=== PATIENT | male | born 1945 | race Caucasian/White ===

== ENCOUNTER → 2017-02-01 | Outpatient (CLI) | payer OTHER, BC ==
[~2017-02-01] MED LIST: ACETAMINOPHN-T1 EACH PO; ATORVASTATIN CA40 MG PO; BACLOFEN10 MG PO; CENTRUM SILVER1 EAC3 PO; CLOPIDOGREL75 MG PO; ECOTRIN325 MG PO; HYDROCODON-ACE1 EAC7 PO; HYDROXYZINE HCL25 MG PO; LANSOPRAZOLE30 MG PO; LORATADINE10 M2 PO; METOPROLOL TART50 MG PO; OCUVITE TABLET1 EACH PO; ROCEPHIN1000 MG IM; TRANDOLAPRIL1 MG PO; VITAMIN D31000 UNIT PO; ZETIA10 MG PO
== END | disposition home or self-care (01) ==
LOC: AMB 12:31
DX: M54.16 Radiculopathy, lumbar region (principal); R20.0 Anesthesia of skin; M79.662 Pain in left lower leg; M47.896 Other spondylosis, lumbar region
CPT/HCPCS: 62304; 72132

== ENCOUNTER 2017-07-26 11:05 | Inpatient (IN) | payer OTHER, BC ==
[~2017-07-26] VITALS: Ht 167.6 cm; Wt 61.8 kg
[2017-07-26 11:44] LABS: HEMATOCRIT 33.7 % (38.0-50.0); MCHC 34.7 G/DL (30.0-36.0); MCV 92.1 FL (86-99); MEAN PLAT.VOLUME 10.4 uM^3 (9.0-12.4); PLATELET COUNT 249 K/uL (156-360); RBC DIS.WIDTH-CV 14.7 % (11.8-14.6); RBC DIS.WIDTH-SD 49.9 % (39-53); RED BLOOD COUNT 3.66 M/uL (4.00-5.50); WHITE BLOOD COUNT 14.3 K/uL (4.1-10.2)
[2017-07-26 11:53] LABS: CHLORIDE 99 mEq/L (99-109); POTASSIUM 3.5 mEq/L (3.7-5.4); SODIUM 135 mEq/L (136-147)
[2017-07-26 11:56] LABS: GLUCOSE 127 mg/dL (70-99)
[2017-07-26 11:57] LABS: ANION GAP 11 MEQ/L (2-14)
[2017-07-26 11:59] LABS: ALKALINE PHOSPHATASE 2183 IU/L (3-129); GFR ESTIMATE (CALCULATED) > 59 mL/min/ (58.99-99999)
[2017-07-26 12:00] LABS: UREA NITROGEN (BUN) 23 mg/dL (9-23)
[2017-07-26 12:03] LABS: LIPASE 24 U/L (1.0-51.0)
[2017-07-26] MEDS ORDERED: BACLOFEN10 MG PO (14:28)
[2017-07-26] MEDS ORDERED: TOPROL XL50 MG PO (14:30)
[2017-07-26] MEDS ORDERED: LITE COAT ASPI325 M1 PO (14:31)
[2017-07-26] MEDS ORDERED: NORCO 5/3251 TABLET PO (14:32)
[2017-07-26] MEDS ORDERED: EPIPEN ADU0.3 MG/0.3 IM (14:34)
[2017-07-26] MEDS ORDERED: LANSOPRAZOLE30 MG PO (14:34)
[2017-07-26] MEDS ORDERED: CENTRUM SILVER1 EAC5 PO (14:35)
[2017-07-26 16:53] LABS: INTER. NORMALIZED RATIO 1.4; PROTHROMBIN TIME 15.6 SEC (10.2-12.9)
[2017-07-26 16:56] LABS: PTT 34.7 SEC (25-37)
[2017-07-26 18:37] VITALS: BP 146/65
[2017-07-26 18:54] VITALS: BP 121/56
[2017-07-26 22:48] VITALS: BP 92/56
[2017-07-27] VITALS (7 sets, daily range): BP systolic 97–120; BP diastolic 51–64
[2017-07-27 06:02] LABS: MCH 31.6 PG (29.0-34.0); MCHC 33.5 G/DL (30.0-36.0); MCV 94.2 FL (86-99); MEAN PLAT.VOLUME 10.7 uM^3 (9.0-12.4); PLATELET COUNT 198 K/uL (156-360); RBC DIS.WIDTH-CV 15.4 % (11.8-14.6); RBC DIS.WIDTH-SD 53.1 % (39-53); RED BLOOD COUNT 3.29 M/uL (4.00-5.50)
[2017-07-27 06:29] LABS: ANION GAP 7 MEQ/L (2-14); CHLORIDE 107 MEQ/L (99-109); GFR ESTIMATE (CALCULATED) > 59 mL/min/ (58.99-99999); GLUCOSE 81 mg/dL (70-99); POTASSIUM 3.7 MEQ/L (3.7-5.4); SAMPLE HEMOLYSIS CHECK 0; SAMPLE ICTERIC CHECK 2; SAMPLE LIPEMIA CHECK 0; SODIUM 141 MEQ/L (136-147); TOTAL BILIRUBIN 11.1 MG/DL (0.0-1.0); UREA NITROGEN (BUN) 23 mg/dL (9-23)
[2017-07-27 08:48] LABS: ALKALINE PHOSPHATASE 1650 IU/L (3-129)
[2017-07-28 03:53] VITALS: BP 123/56
[2017-07-28 05:59] LABS: BASOPHIL COUNT 0.1 K/uL (0-0.1); EOSINOPHIL (%) 1.7 % (0-5); EOSINOPHIL COUNT 0.2 K/uL (0-0.3); HEMATOCRIT 29.1 % (38.0-50.0); IMMATURE GRANULOCYTE (%) 0.9 % (0.0-0.7); IMMATURE GRANULOCYTE COUNT 0.1 K/uL; INSTRUMENT ABS NEUTROPHIL CT 11.6 K/uL; LYMPHOCYTE COUNT 0.7 K/uL (1.0-2.8); MCV 93.9 FL (86-99); MEAN PLAT.VOLUME 10.5 uM^3 (9.0-12.4); MONOCYTE (%) 6.4 % (3-12); MONOCYTE COUNT 0.9 K/uL (0-0.8); NEUTROPHIL (%) 85.7 % (45-76); NEUTROPHIL COUNT 11.6 K/uL (1.8-6.4); PLATELET COUNT 204 K/uL (156-360); RBC DIS.WIDTH-CV 15.5 % (11.8-14.6); WHITE BLOOD COUNT 13.6 K/uL (4.1-10.2)
[2017-07-28 06:24] LABS: ALKALINE PHOSPHATASE 1496 IU/L (3-129); ANION GAP 11 MEQ/L (2-14); CHLORIDE 111 MEQ/L (99-109); GFR ESTIMATE (CALCULATED) > 59 mL/min/ (58.99-99999); GLUCOSE 100 mg/dL (70-99); POTASSIUM 3.4 MEQ/L (3.7-5.4); SAMPLE HEMOLYSIS CHECK 0; SAMPLE ICTERIC CHECK 3; SAMPLE LIPEMIA CHECK 0; SODIUM 144 MEQ/L (136-147); TOTAL BILIRUBIN 13.1 MG/DL (0.0-1.0); UREA NITROGEN (BUN) 23 mg/dL (9-23)
[2017-07-28 07:30] VITALS: BP 128/63
[2017-07-28 11:16] VITALS: BP 107/58
[2017-07-28 16:32] VITALS: BP 122/60
[2017-07-28 19:43] VITALS: BP 129/61
[2017-07-28 22:54] VITALS: BP 114/55
[2017-07-29 04:00] VITALS: BP 120/68
[2017-07-29 06:14] LABS: EOSINOPHIL (%) 2.8 % (0-5); EOSINOPHIL COUNT 0.3 K/uL (0-0.3); HEMATOCRIT 27.1 % (38.0-50.0); IMMATURE GRANULOCYTE (%) 0.9 % (0.0-0.7); IMMATURE GRANULOCYTE COUNT 0.1 K/uL; INSTRUMENT ABS NEUTROPHIL CT 8.2 K/uL; LYMPHOCYTE COUNT 0.7 K/uL (1.0-2.8); MCH 31.8 PG (29.0-34.0); MCHC 34.3 G/DL (30.0-36.0); MCV 92.8 FL (86-99); MEAN PLAT.VOLUME 10.6 uM^3 (9.0-12.4); MONOCYTE (%) 7.4 % (3-12); MONOCYTE COUNT 0.7 K/uL (0-0.8); NEUTROPHIL (%) 81.6 % (45-76); NEUTROPHIL COUNT 8.2 K/uL (1.8-6.4); PLATELET COUNT 202 K/uL (156-360); RBC DIS.WIDTH-CV 15.8 % (11.8-14.6); RBC DIS.WIDTH-SD 53.1 % (39-53); RED BLOOD COUNT 2.92 M/uL (4.00-5.50)
[2017-07-29 06:44] LABS: ALKALINE PHOSPHATASE 1371 IU/L (3-129); ANION GAP 9 MEQ/L (2-14); CHLORIDE 114 MEQ/L (99-109); GFR ESTIMATE (CALCULATED) > 59 mL/min/ (58.99-99999); GLUCOSE 106 mg/dL (70-99); POTASSIUM 3.6 MEQ/L (3.7-5.4); SAMPLE HEMOLYSIS CHECK 0; SAMPLE ICTERIC CHECK 3; SAMPLE LIPEMIA CHECK 0; SODIUM 145 MEQ/L (136-147); TOTAL BILIRUBIN 12.6 MG/DL (0.0-1.0); UREA NITROGEN (BUN) 18 mg/dL (9-23)
[2017-07-29 06:50] VITALS: BP 127/66
[2017-07-29 15:15] VITALS: BP 133/71
[2017-07-30 00:01] VITALS: BP 140/67
[2017-07-30 06:06] LABS: BASOPHIL COUNT 0.1 K/uL (0-0.1); EOSINOPHIL (%) 3.1 % (0-5); EOSINOPHIL COUNT 0.3 K/uL (0-0.3); HEMATOCRIT 28.2 % (38.0-50.0); IMMATURE GRANULOCYTE (%) 1.2 % (0.0-0.7); IMMATURE GRANULOCYTE COUNT 0.1 K/uL; INSTRUMENT ABS NEUTROPHIL CT 7.5 K/uL; LYMPHOCYTE COUNT 0.8 K/uL (1.0-2.8); MCH 32.1 PG (29.0-34.0); MCHC 34.8 G/DL (30.0-36.0); MCV 92.5 FL (86-99); MEAN PLAT.VOLUME 10.8 uM^3 (9.0-12.4); MONOCYTE (%) 7.2 % (3-12); MONOCYTE COUNT 0.7 K/uL (0-0.8); NEUTROPHIL (%) 79.5 % (45-76); NEUTROPHIL COUNT 7.5 K/uL (1.8-6.4); PLATELET COUNT 205 K/uL (156-360); RBC DIS.WIDTH-CV 16.2 % (11.8-14.6); RBC DIS.WIDTH-SD 54.3 % (39-53); RED BLOOD COUNT 3.05 M/uL (4.00-5.50); WHITE BLOOD COUNT 9.4 K/uL (4.1-10.2)
[2017-07-30 06:45] LABS: ALKALINE PHOSPHATASE 1485 IU/L (3-129); ANION GAP 11 MEQ/L (2-14); CHLORIDE 111 MEQ/L (99-109); GFR ESTIMATE (CALCULATED) > 59 mL/min/ (58.99-99999); GLUCOSE 97 mg/dL (70-99); POTASSIUM 3.5 MEQ/L (3.7-5.4); SAMPLE HEMOLYSIS CHECK 0; SAMPLE ICTERIC CHECK 3; SAMPLE LIPEMIA CHECK 0; SODIUM 146 MEQ/L (136-147); UREA NITROGEN (BUN) 16 mg/dL (9-23)
[2017-07-30 06:58] LABS: TOTAL BILIRUBIN 15.5 MG/DL (0.0-1.0)
[2017-07-30 08:56] VITALS: BP 154/70
[2017-07-30 15:00] VITALS: BP 122/59
[2017-07-31 01:10] VITALS: BP 120/64
[2017-07-31 06:50] LABS: ALKALINE PHOSPHATASE 1242 IU/L (3-129); ANION GAP 7 MEQ/L (2-14); CHLORIDE 112 MEQ/L (99-109); GFR ESTIMATE (CALCULATED) > 59 mL/min/ (58.99-99999); GLUCOSE 100 mg/dL (70-99); POTASSIUM 3.4 MEQ/L (3.7-5.4); SAMPLE HEMOLYSIS CHECK 0; SAMPLE ICTERIC CHECK 3; SAMPLE LIPEMIA CHECK 0; SODIUM 145 MEQ/L (136-147); UREA NITROGEN (BUN) 17 mg/dL (9-23)
[2017-07-31 07:03] VITALS: BP 139/65
[2017-07-31 15:44] VITALS: BP 123/58
[2017-08-01 00:05] VITALS: BP 135/71
[2017-08-01 05:55] LABS: ALKALINE PHOSPHATASE 1367 IU/L (3-129); ANION GAP 9 MEQ/L (2-14); CHLORIDE 112 MEQ/L (99-109); GFR ESTIMATE (CALCULATED) > 59 mL/min/ (58.99-99999); GLUCOSE 105 mg/dL (70-99); POTASSIUM 3.3 MEQ/L (3.7-5.4); SAMPLE HEMOLYSIS CHECK 1; SAMPLE ICTERIC CHECK 3; SAMPLE LIPEMIA CHECK 0; SODIUM 147 MEQ/L (136-147); TOTAL BILIRUBIN 14.1 MG/DL (0.0-1.0); UREA NITROGEN (BUN) 14 mg/dL (9-23)
[2017-08-01 07:15] VITALS: BP 139/65
[2017-08-01 14:54] VITALS: BP 122/57
[2017-08-01 23:13] VITALS: BP 134/63
[2017-08-02 06:03] LABS: ANION GAP 7 MEQ/L (2-14); CHLORIDE 112 MEQ/L (99-109); POTASSIUM 3.8 MEQ/L (3.7-5.4); SAMPLE HEMOLYSIS CHECK 2; SAMPLE ICTERIC CHECK 3; SAMPLE LIPEMIA CHECK 0; SODIUM 146 MEQ/L (136-147); TOTAL BILIRUBIN 13.7 MG/DL (0.0-1.0)
[2017-08-02 06:09] LABS: ALKALINE PHOSPHATASE 1317 IU/L (3-129); GFR ESTIMATE (CALCULATED) > 59 mL/min/ (58.99-99999); GLUCOSE 102 mg/dL (70-99); UREA NITROGEN (BUN) 14 mg/dL (9-23)
[2017-08-02 06:49] VITALS: BP 132/62
[2017-08-02] MEDS ORDERED: CIPROFLOXACIN500 M1 PO (10:40)
[2017-08-02] MEDS ORDERED: ATIVAN0.5 MG PO (10:40)
[2017-08-02] MEDS ORDERED: MORPHINE CON20 MG/M1 PO (10:40)
[2017-08-02] MEDS ORDERED: METRONIDAZOLE500 MG PO (10:40)
[2017-08-02] MEDS ORDERED: HYOSCYAMINE0.125 M2 SL (10:40)
[2017-08-02] MEDS ORDERED: LACTULOSE10 GM/151 PO (10:43)
== END 2017-08-02 15:27 | disposition home or self-care (01) | DRG 435 ==
LOC: EME 11:05 → EDOF 15:12 → 5EAST 15:12 → ENRESERV 15:20 → 5EAST 18:01 → ENPENDDIS 08-02 → 5EAST 08-02 15:27
PROVIDERS: Emergency Medicine; Internal Medicine; Radiology Diagnostic Radiology
PROC: 0FB13ZX Excision of Right Lobe Liver, Percutaneous Approach, Diagnostic (ICD-10-PCS; principal; 2017-07-27)
DX: C25.9 Malignant neoplasm of pancreas, unspecified (principal); C23 Malignant neoplasm of gallbladder; K80.01 Calculus of gallbladder with acute cholecystitis with obstruction; K75.0 Abscess of liver; K76.0 Fatty (change of) liver, not elsewhere classified; I70.0 Atherosclerosis of aorta; R16.0 Hepatomegaly, not elsewhere classified; Z51.5 Encounter for palliative care; B96.1 Klebsiella pneumoniae [K. pneumoniae] as the cause of diseases classified elsewhere; K72.90 Hepatic failure, unspecified without coma; R74.0 Nonspecific elevation of levels of transaminase and lactic acid dehydrogenase [LDH]; R45.1 Restlessness and agitation; Z79.82 Long term (current) use of aspirin; D64.9 Anemia, unspecified; M54.9 Dorsalgia, unspecified; K74.60 Unspecified cirrhosis of liver; I10 Essential (primary) hypertension; F17.200 Nicotine dependence, unspecified, uncomplicated; R17 Unspecified jaundice; E87.6 Hypokalemia; G89.29 Other chronic pain; K80.10 Calculus of gallbladder with chronic cholecystitis without obstruction; I25.10 Atherosclerotic heart disease of native coronary artery without angina pectoris; R63.4 Abnormal weight loss; E78.5 Hyperlipidemia, unspecified; Z82.49 Family history of ischemic heart disease and other diseases of the circulatory system; I25.2 Old myocardial infarction; Z95.1 Presence of aortocoronary bypass graft; Z87.891 Personal history of nicotine dependence; Z68.21 Body mass index [BMI] 21.0-21.9, adult; Z88.0 Allergy status to penicillin; Z80.1 Family history of malignant neoplasm of trachea, bronchus and lung; D72.829 Elevated white blood cell count, unspecified
CPT/HCPCS: 71010; 74177; 76705; 77012; 80053; 82105 90; 82140; 82248; 83690; 85025; 85027; 85610; 85730; 87040; 87070; 87075; 87077; 87186; 87205; 87801; 88307; 88341 TC; 88342 TC; 93005; 97530 GO; 99281; 99285; J0696; J1335; J1885; J2270; J2405; J3010; J7030; J7050; S0030